=== PATIENT | male | born 1960 | race Caucasian/White ===

== ENCOUNTER 2016-04-22 10:51 | Emergency (ER) | payer OTHER ==
[~2016-04-22] VITALS: Ht 177.8 cm; Wt 80.0 kg
[2016-04-22 10:54] VITALS: Ht 177.8 cm; Wt 80.0 kg
[2016-04-22] MEDS ORDERED: IBUPROFEN 600 MG TAB PO ONE (13:00)
[2016-04-22] MEDS ORDERED: HYDROCODONE/APAP (5/325) TAB PO ONE (13:00)
--- NOTE | 2016-04-22 13:22 | RADRPT ---
PROCEDURE: XR Forearm. CLINICAL INDICATION: Right forearm pain and swelling. TECHNIQUE: 2 views of the right forearm were obtained. COMPARISON: No prior studies are available for comparison. FINDINGS: There is normal mineralization and alignment. No fracture or osseous lesion is identified. There are normal joints without evidence of arthritis or effusion. The soft tissues are unremarkable. Old hea led fracture of the proximal shaft of the right ulna is identified. IMPRESSION: 1. Unremarkable right forearm x-ray series. 2. No acute abnormality is identified. 3. Old healed fracture of the proximal shaft of the right ulna. RPTAT: HMJB .Christian Ventura MD, MD Date Time Electronically viewed and signed by .Christian Ventura MD, MD on 04/22/2016 13:21 .B/
--- NOTE | 2016-04-22 13:25 | RADRPT ---
PROCEDURE: XR Wrist. CLINICAL INDICATION: Right wrist pain TECHNIQUE: AP, lateral and oblique views of the right wrist were performed. COMPARISON: No prior studies are available for comparison. FINDINGS: There is normal mineralization and alignment of the bones of the right wrist . note is made of a ch ronic-appearing fracture of the distal fifth metacarpal. There is no evidence of acute fracture or dislocation in the carpal bones.. Joint spaces are well maintained. No erosions or osteophytes are seen. There is mild soft tissue swelling. IMPRESSION: 1. The no evidence of acute fracture dislocation. 2. Mild soft tissue swelling. RPTAT: AA .Clemente Adams MD, Date Time Electronically viewed and signed by .Clemente Adams MD, MD on 04/22/2016 13:24 .B/
--- NOTE | 2016-04-22 13:44 | RADRPT ---
PROCEDURE: US upper extremity Venous. CLINICAL INDICATION: arm swelling TECHNIQUE: Multiple sonographic images of the right upper extremity venous system was obtained uti lizing grayscale, color-flow, compressive sonography and doppler imaging with augmentation. The rick ges were reviewed on a PACS workstation. COMPARISON: None. FINDINGS: There is normal compressibility and flow within the right internal jugular vein, subclavian vein, ax illary vein, brachial, basilic, cephalic, radial and ulnar veins. RPTAT: AA IMPRESSION: No sonographic evidence for venous thrombosis. .Doe Meredith MD, MD Date Time Electronically viewed and signed by .Doe Meredith MD, MD on 04/22/2016 13:44 .S/
[2016-04-22] MEDS ORDERED: IBUP-1542 PO (13:51)
[2016-04-22] MEDS ORDERED: HYDR-906 PO (13:51)
[2016-04-22 14:16] VITALS: BP 117/68; PULSE 70; RESP 20
--- NOTE | 2016-04-22 14:36 | ERD ---
ER Documentation Chief Complaint Date/Time DATE: 04/22/16 TIME: 14:30 Chief Complaint RT FOREARM PAIN X 1 WEEK HPI This is a 55-year-old male that presents to the ER stating that he has had right forearm and right wrist pain for the last 5 days. Patient does not recall any trauma. The area is swollen and tender to the touch. It is worse with any movement. Patient does admit to some numbness and tingling of his fingertips. Patient denies any fevers or chills. Pain is described as severe and constant. He has not tried anything for the pain. ROS 12 point review of systems was done, all negative except per HPI. Medications Home Meds Active Scripts Hydrocodone/Acetaminophen ([place] 5-325 Tablet) 1 Each Tablet, 1 TAB PO Q6H Y for PAIN, #10 TAB Prov:ROBERT WINSLOW 04/22/16 Ibuprofen* (Motrin*) 600 Mg Tab, 600 MG PO Q6, #30 TAB Prov:ROBERT WINSLOW 04/22/16 Allergies Allergies: Coded Allergies: No Known Allergy (Unverified , 10/26/15) PMhx/Soc History of Surgery: No Anesthesia Reaction: No Hx Neurological Disorder: No Hx Respiratory Disorders: No Hx Cardiac Disorders: No Hx Psychiatric Problems: No Hx Miscellaneous Medical Probl: No Hx Alcohol Use: No Hx Substance Use: No Hx Tobacco Use: No Physical Exam Vitals Vital Signs Date Time Temp Pulse Resp B/P Pulse Ox O2 Delivery O2 Flow Rate FiO2 04/22/16 14:16 70 20 117/68 100 Room Air 04/22/16 10:54 98.1 82 18 106/67 98 Physical Exam GENERAL: The patient is well developed and appropriate for usual state of health , in no apparent distress. HEENT: Atraumatic. CHEST: Clear to auscultation bilaterally. There are no rales, wheezes or rhonchi. HEART: Regular rate and rhythm. No murmurs, clicks, rubs or gallops. EXTREMITIES: Right elbow: Patient is not tender to palpation at the elbow he has full range of motion of the elbow. Patient is tender to palpation at the distal forearm, there is some swelling to the distal forearm. No erythema. Patient has full range of motion of his right wrist, no snuffbox tenderness. Patient has full range of motion of his right fingers. Radial median ulnar nerves are intact to strength and sensation. +2 pulses. Left upper extremity was checked there was no elbow, forearm, wrist, hand pain. NEURO: Alert and oriented. Results 24 hrs Current Medications Medications (Trade) Dose Ordered Sig/Terry Route PRN Reason Start Time Stop Time Status Last Admin Dose Admin Acetaminophen/ Hydrocodone Bitart ([place] (5/325)) 1 tab ONCE ONCE PO 04/22/16 13:00 04/22/16 13:01 DC 04/22/16 12:44 Ibuprofen (Motrin) 600 mg ONCE ONCE PO 04/22/16 13:00 04/22/16 13:01 DC 04/22/16 12:44 Procedures/MDM This is a 55-year-old male presents to the ER with right forearm and right wrist pain at this time there is no evidence of fractures or dislocations. Patient has full range of motion of his extremity and he is neurovascularly intact. He is afebrile and well-appearing suspicion for septic joint or septic arthritis. I doubt osteomyelitis. There is no evidence of thrombosis of the upper extremity. he was put in an Paul wrap. Patient will be sent home with [place] and with ibuprofen. He is to follow-up with his primary care doctor within 1-2 days return to ER sooner if symptoms worsen. My medical decision making was shared with patient understands and agrees with plan Departure Diagnosis: Primary Impression: Right forearm pain Condition: Stable Patient Instructions: Hand and Wrist Exercises: Forearm Roll Additional Instructions: Call your primary care doctor TOMORROW for an appointment during the next 1-2 days.See the doctor sooner or return here if your condition worsens before your appointment time. ROBERT WINSLOW Apr 22, 2016 14:36
== END 2016-04-22 14:17 | disposition home or self-care (01) ==
LOC: FTE 10:51
DX: M79.631 Pain in right forearm (principal)
CPT/HCPCS: 73090; 73110; 93971; Z7610